=== PATIENT | male | born 1940 | race Caucasian/White ===

== ENCOUNTER 2020-10-25 20:28 | Inpatient (IN) ==
[2020-10-25] MEDS ORDERED: Isovue-370 500 ML BOTTLE IVP ONE (20:49)
[2020-10-25 21:12] LABS: Basophils % 0.1 %
[2020-10-25 21:14] LABS: Hematocrit 46.3 % (37.5-50.1); Hemoglobin 15.4 g/dL (12.9-16.9); Immature Granulocytes % 0.3 % (0-4); Immature Platelets 4.7 % (1.1-6.1); Lymphocytes # 0.6 K/mcL (0.6-4.6); Lymphocytes % 8.1 %; Mean Corpuscular HGB Conc 33.3 g/dL (31.6-35.5); Mean Corpuscular Hemoglobin 29.7 pg (28.0-33.3); Mean Corpuscular Volume 89.4 fL (83.0-100.0); Monocytes # 0.3 K/mcL (0.0-1.3); Monocytes % 4.9 %; Platelet Count 120 K/mcL (140-400); Red Blood Count 5.18 M/mcL (4.19-5.50); Segmented Neutrophils % 86.6 %; White Blood Count 6.9 K/mcL (4.3-11.1)
[2020-10-25] MEDS ORDERED: Piperacillin/Tazobactam 3.375 GM in Water for inj. (sterile) 20 ML IVP ONE (21:40)
[2020-10-25 21:42] LABS: Albumin 3.4 g/dL (3.5-5.7); Bilirubin,Total 0.6 mg/dL (0.3-1.0); Calcium 8.1 mg/dL (8.6-10.3); Globulin 3.3 g/dL (2.4-3.5); Potassium 4.5 mEq/L (3.5-5.1); Total Protein 6.7 g/dL (6.4-8.9); Troponin I 0.05 ng/mL (< 0.04)
[2020-10-25] MEDS ORDERED: Dexamethasone 4 MG/ML VIAL IVP ONE (22:20)
[2020-10-25] MEDS ORDERED: 0.9 % Sodium Chloride 500 ML IVC ONE (23:58)
[2020-10-26] MEDS ORDERED: Naloxone 0.4 MG/ML INJ IVP PRN
[2020-10-26] MEDS ORDERED: Acetaminophen 325 MG TABLET PO PRN
[2020-10-26] MEDS ORDERED: Ondansetron ODT 4 MG TAB.RAPDIS SL PRN
[2020-10-26] MEDS ORDERED: D5% in Water 1,000 ML IVC PRN (00:05)
[2020-10-26] MEDS ORDERED: *HR* Dextrose 50 % in Water (Vial) 50 ML VIAL IVP PRN (00:05)
[2020-10-26] MEDS ORDERED: Dextrose Gel 15 GM/37.5 ML TUBE PO PRN ×2 (00:05)
[2020-10-26] MEDS ORDERED: Insulin LISPRO 300 UNITS/3 ML VIAL SUBQ SCH ×2 (00:15)
[2020-10-26 02:36] LABS: Basophils % 0.2 %; Hematocrit 41.8 % (37.5-50.1); Immature Granulocytes % 0.3 % (0-4); Lymphocytes # 0.4 K/mcL (0.6-4.6); Lymphocytes % 6.8 %; Mean Corpuscular HGB Conc 32.5 g/dL (31.6-35.5); Mean Corpuscular Hemoglobin 28.8 pg (28.0-33.3); Mean Corpuscular Volume 88.6 fL (83.0-100.0); Mean Platelet Volume 10.5 fL (9.4-12.4); Monocytes # 0.2 K/mcL (0.0-1.3); Monocytes % 3.5 %; Neutrophils # 5.7 K/mcL (1.6-8.9); Platelet Count 110 K/mcL (140-400); Red Blood Count 4.72 M/mcL (4.19-5.50); Red Cell Distribution Width 14.9 % (11.5-14.5); Segmented Neutrophils % 89.2 %; White Blood Count 6.3 K/mcL (4.3-11.1)
[2020-10-26 02:40] LABS: Hemoglobin 13.6 g/dL (12.9-16.9)
[2020-10-26 02:47] LABS: BUN/Creatinine Ratio 38 (6-26); Blood Urea Nitrogen 39 mg/dL (8-23); C-Reactive Protein 118 mg/L (Less than 10); Calcium 7.6 mg/dL (8.6-10.3); Carbon Dioxide 14 mEq/L (23-29); Chloride 99 mEq/L (98-107); Chol/HDL Ratio 4.1 (0-4.9); Cholesterol 154 mg/dL (< 200); Glucose 260 mg/dL (70-105); HDL Cholesterol 38 mg/dL (40-59); LDL Cholesterol,Calculated 87 mg/dL (< 100); Lactate Dehydrogenase 390 Units/L (140-271); Magnesium 2.2 mg/dL (1.6-2.6); Osmolality,Calculated 280 (280-300); Phosphorous 3.4 mg/dL (2.7-4.5); Potassium 4.6 mEq/L (3.5-5.1); Sodium 126 mEq/L (136-145); Triglycerides 144 mg/dL (< 150); eGFR For African Americans > 60 (> 60); eGFR For Non-African Americans > 60 (> 60)
[2020-10-26 02:48] LABS: INR 1.3
[2020-10-26 03:00] LABS: Thyroid Stimulating Hormone 1.446 mcIU/mL (0.340-5.600)
[2020-10-26 03:05] LABS: Ferritin 837 ng/mL (20-250)
[2020-10-26 07:39] LABS: Bilirubin,Urine Negative (Negative); Blood,Urine Negative (Negative); Clarity,Urine Clear (Clear); Color,Urine Colorless (Yellow); Glucose,Urine (UA) >=1000 mg/dL (Normal); Ketones,Urine 20 mg/dL (Negative); Leukocyte Esterase,Urine Negative (Negative); Mucus,Urine Few per lpf (None-Few); Nitrite,Urine Negative (Negative); Protein,Urine Negative (Neg-Trace); Specific Gravity,Urine > 1.030 (1.010-1.025); Urobilinogen,Urine Normal (Normal); WBC,Urine 0-3 per hpf (0-3)
[2020-10-26] MEDS: Dexamethasone 4 MG/ML VIAL IVP SCH (08:01)
[2020-10-26] MEDS: Piperacillin/Tazobactam 3.375 GM in 0.9 % Sodium Chloride Mini Bag 100 ML IVPB SCH ×2 (08:01→20:41)
[2020-10-26] MEDS ORDERED: Furosemide 40 MG/4 ML VIAL IVP ONE (08:01)
[2020-10-26] MEDS: Insulin LISPRO 300 UNITS/3 ML VIAL SUBQ SCH ×3 (08:08→18:19)
[2020-10-26 09:31] LABS: Estimated Average Glucose 263 mg/dl; Hemoglobin A1C 10.8 %
[2020-10-26] MEDS: Ipratropium 1 PUFF INHALER IH SCH ×4 (11:42→23:19)
[2020-10-26 17:46] LABS: Adenovirus Not Detected (Not Detect); Bordetella Pertussis Not Detected (Not Detect); Chlamydophila pneumoniae Not Detected (Not Detect); Coronavirus 229E Not Detected (Not Detect); Coronavirus HKU1 Not Detected (Not Detect); Coronavirus NL63 Not Detected (Not Detect); Coronavirus OC43 Not Detected (Not Detect); Human Metapneumovirus Not Detected (Not Detect); Human Rhinovirus/Enterovirus Not Detected (Not Detect); Influenza A Subtype 2009 H1 Not Detected (Not Detect); Influenza B Not Detected (Not Detect); Mycoplasma pneumoniae Not Detected (Not Detect); Parainfluenza Virus 1 Not Detected (Not Detect); Parainfluenza Virus 2 Not Detected (Not Detect); Parainfluenza Virus 3 Not Detected (Not Detect); Parainfluenza Virus 4 Not Detected (Not Detect); Respiratory Syncytial Virus Not Detected (Not Detect)
[2020-10-26 17:47] LABS: SARS-CoV-2 DETECTED (Not Detect)
[2020-10-26] MEDS ORDERED: Remdesivir 200 MG in 0.9 % Sodium Chloride 100 ML IVPB ONE (18:00)
[2020-10-26] MEDS: *HR* Rivaroxaban 10 MG TABLET PO SCH (18:18)
[2020-10-26] MEDS: Doxycycline 100 MG in 0.9 % Sodium Chloride Mini Bag 100 ML IVPB SCH (20:42)
[2020-10-26] MEDS: Furosemide 40 MG/4 ML VIAL IVP SCH (20:43)
[2020-10-26] MEDS: Insulin DETEMIR 100 UNIT/ML X5UNITS SUBQ SCH (21:03)
[2020-10-26] MEDS ORDERED: Vancomycin 1,250 MG/262.5 ML IV.SOLN IVPB SCH (22:00)
[2020-10-27] MEDS: Piperacillin/Tazobactam 3.375 GM in 0.9 % Sodium Chloride Mini Bag 100 ML IVPB SCH ×4 (01:11→23:42)
[2020-10-27] MEDS: Ipratropium 1 PUFF INHALER IH SCH ×6 (03:53→23:43)
[2020-10-27] MEDS: Doxycycline 100 MG in 0.9 % Sodium Chloride Mini Bag 100 ML IVPB SCH (05:47)
[2020-10-27 06:12] LABS: Basophils % 0.1 %; Hematocrit 47.4 % (37.5-50.1); Immature Granulocytes % 0.3 % (0-4); Lymphocytes # 0.4 K/mcL (0.6-4.6); Lymphocytes % 5.5 %; Mean Corpuscular Volume 88.4 fL (83.0-100.0); Mean Platelet Volume 10.7 fL (9.4-12.4); Monocytes # 0.3 K/mcL (0.0-1.3); Monocytes % 4.3 %; Neutrophils # 6.3 K/mcL (1.6-8.9); Platelet Count 124 K/mcL (140-400); Red Blood Count 5.36 M/mcL (4.19-5.50); Red Cell Distribution Width 14.8 % (11.5-14.5); Segmented Neutrophils % 89.8 %
[2020-10-27 06:24] LABS: Hemoglobin 16.1 g/dL (12.9-16.9)
[2020-10-27 06:30] LABS: D-Dimer 2645 ng/mLFEU (0-500); Fibrinogen 716 mg/dL (169-393)
[2020-10-27 06:43] LABS: BUN/Creatinine Ratio 37 (6-26); Blood Urea Nitrogen 46 mg/dL (8-23); Calcium 7.9 mg/dL (8.6-10.3); Carbon Dioxide 15 mEq/L (23-29); Chloride 96 mEq/L (98-107); Glucose 270 mg/dL (70-105); Magnesium 2.2 mg/dL (1.6-2.6); Osmolality,Calculated 291 (280-300); Phosphorous 3.9 mg/dL (2.7-4.5); Potassium 3.9 mEq/L (3.5-5.1); Sodium 130 mEq/L (136-145); Troponin I 0.05 ng/mL (< 0.04); eGFR For African Americans > 60 (> 60); eGFR For Non-African Americans 55 (> 60)
[2020-10-27] MEDS: *HR* Rivaroxaban 10 MG TABLET PO SCH (09:13)
[2020-10-27] MEDS: Furosemide 40 MG/4 ML VIAL IVP SCH ×2 (09:13→21:04)
[2020-10-27] MEDS: Aspirin 81 MG TAB.CHEW PO SCH (09:13)
[2020-10-27] MEDS: Loratadine 10 MG TABLET PO SCH (09:13)
[2020-10-27] MEDS: Isosorbide MONOnitrate (24 HR) 30 MG TAB.ER.24H PO SCH (09:13)
[2020-10-27] MEDS: Dexamethasone 4 MG/ML VIAL IVP SCH (09:14)
[2020-10-27] MEDS: Insulin LISPRO 300 UNITS/3 ML VIAL SUBQ SCH ×4 (09:17→21:07)
[2020-10-27] MEDS: Insulin DETEMIR 100 UNIT/ML X5UNITS SUBQ SCH ×2 (09:19→21:05)
[2020-10-27] MEDS: Vancomycin 1,250 MG/262.5 ML IV.SOLN IVPB SCH (13:42)
[2020-10-27] MEDS: Remdesivir 100 MG in 0.9 % Sodium Chloride 100 ML IVPB SCH (17:31)
[2020-10-27] MEDS: Lactobacillus 1 EACH CAP.SPRINK PO SCH (21:05)
[2020-10-28] MEDS: Ipratropium 1 PUFF INHALER IH SCH ×5 (03:54→20:16)
[2020-10-28 06:21] LABS: Basophils % 0.4 %; Hematocrit 45.1 % (37.5-50.1); Hemoglobin 15.2 g/dL (12.9-16.9); Immature Granulocytes % 0.4 % (0-4); Lymphocytes # 0.5 K/mcL (0.6-4.6); Mean Corpuscular HGB Conc 33.7 g/dL (31.6-35.5); Mean Corpuscular Volume 85.9 fL (83.0-100.0); Mean Platelet Volume 10.8 fL (9.4-12.4); Monocytes # 0.4 K/mcL (0.0-1.3); Monocytes % 4.7 %; Neutrophils # 6.5 K/mcL (1.6-8.9); Platelet Count 133 K/mcL (140-400); Red Blood Count 5.25 M/mcL (4.19-5.50); Red Cell Distribution Width 14.7 % (11.5-14.5); Segmented Neutrophils % 87.5 %; White Blood Count 7.5 K/mcL (4.3-11.1)
[2020-10-28 06:41] LABS: Fibrinogen 672 mg/dL (169-393)
[2020-10-28 06:43] LABS: D-Dimer 5555 ng/mLFEU (0-500)
[2020-10-28 06:44] LABS: BUN/Creatinine Ratio 39 (6-26); Blood Urea Nitrogen 48 mg/dL (8-23); Carbon Dioxide 19 mEq/L (23-29); Chloride 100 mEq/L (98-107); Glucose 163 mg/dL (70-105); Magnesium 2.2 mg/dL (1.6-2.6); Osmolality,Calculated 292 (280-300); Potassium 3.3 mEq/L (3.5-5.1); Sodium 133 mEq/L (136-145); eGFR For African Americans > 60 (> 60); eGFR For Non-African Americans 57 (> 60)
[2020-10-28] MEDS: Insulin LISPRO 300 UNITS/3 ML VIAL SUBQ SCH ×4 (08:18→19:53)
[2020-10-28] MEDS: Piperacillin/Tazobactam 3.375 GM in 0.9 % Sodium Chloride Mini Bag 100 ML IVPB SCH ×2 (08:18→15:58)
[2020-10-28] MEDS: Furosemide 40 MG/4 ML VIAL IVP SCH (08:19)
[2020-10-28] MEDS: *HR* Rivaroxaban 10 MG TABLET PO SCH (08:19)
[2020-10-28] MEDS: Isosorbide MONOnitrate (24 HR) 30 MG TAB.ER.24H PO SCH (08:19)
[2020-10-28] MEDS: Lactobacillus 1 EACH CAP.SPRINK PO SCH ×2 (08:19→19:53)
[2020-10-28] MEDS: Aspirin 81 MG TAB.CHEW PO SCH (08:19)
[2020-10-28] MEDS: Dexamethasone Sodium Phos/PF 10 MG/ML VIAL IVP SCH (08:19)
[2020-10-28] MEDS: Loratadine 10 MG TABLET PO SCH (08:19)
[2020-10-28] MEDS: Insulin DETEMIR 100 UNIT/ML X5UNITS SUBQ SCH ×2 (08:20→19:53)
[2020-10-28] MEDS: Pantoprazole 40 MG VIAL IVP SCH (08:20)
[2020-10-28 13:50] LABS: Alanine Aminotransferase 31 Units/L (7-52); Albumin 3.1 g/dL (3.5-5.7); Alkaline Phosphatase 86 Units/L (34-104); Aspartate Amino Transferase 53 Units/L (13-39); Bilirubin,Direct 0.2 mg/dL (0.0-0.2); Bilirubin,Indirect 0.6 mg/dL (0.0-1.0); Bilirubin,Total 0.8 mg/dL (0.3-1.0); Total Protein 6.1 g/dL (6.4-8.9)
[2020-10-28] MEDS: Vancomycin 1,250 MG/262.5 ML IV.SOLN IVPB SCH (14:35)
[2020-10-28] MEDS: Remdesivir 100 MG in 0.9 % Sodium Chloride 100 ML IVPB SCH (18:42)
[2020-10-29] MEDS: Ipratropium 1 PUFF INHALER IH SCH ×7 (00:03→23:46)
[2020-10-29] MEDS: Piperacillin/Tazobactam 3.375 GM in 0.9 % Sodium Chloride Mini Bag 100 ML IVPB SCH ×3 (00:29→16:33)
[2020-10-29 03:42] LABS: Hemoglobin 15.1 g/dL (12.9-16.9); Immature Platelets 4.8 % (1.1-6.1); Mean Corpuscular HGB Conc 33.6 g/dL (31.6-35.5); Mean Corpuscular Hemoglobin 28.9 pg (28.0-33.3); Mean Platelet Volume 10.9 fL (9.4-12.4); Red Blood Count 5.23 M/mcL (4.19-5.50); Red Cell Distribution Width 14.6 % (11.5-14.5); White Blood Count 7.9 K/mcL (4.3-11.1)
[2020-10-29 03:49] LABS: INR 1.3
[2020-10-29 04:00] LABS: Alanine Aminotransferase 29 Units/L (7-52); Albumin 2.9 g/dL (3.5-5.7); Alkaline Phosphatase 116 Units/L (34-104); Aspartate Amino Transferase 45 Units/L (13-39); BUN/Creatinine Ratio 45 (6-26); Bilirubin,Total 0.9 mg/dL (0.3-1.0); Blood Urea Nitrogen 49 mg/dL (8-23); Calcium 7.9 mg/dL (8.6-10.3); Carbon Dioxide 18 mEq/L (23-29); Chloride 104 mEq/L (98-107); Globulin 2.8 g/dL (2.4-3.5); Glucose 119 mg/dL (70-105); Osmolality,Calculated 294 (280-300); Potassium 3.5 mEq/L (3.5-5.1); Sodium 135 mEq/L (136-145); Total Protein 5.7 g/dL (6.4-8.9); eGFR For African Americans > 60 (> 60); eGFR For Non-African Americans > 60 (> 60)
[2020-10-29] MEDS: Insulin LISPRO 300 UNITS/3 ML VIAL SUBQ SCH ×4 (08:41→20:18)
[2020-10-29] MEDS: Dexamethasone Sodium Phos/PF 10 MG/ML VIAL IVP SCH (08:48)
[2020-10-29] MEDS: Aspirin 81 MG TAB.CHEW PO SCH (08:48)
[2020-10-29] MEDS: *HR* Rivaroxaban 10 MG TABLET PO SCH (08:48)
[2020-10-29] MEDS: Loratadine 10 MG TABLET PO SCH (08:48)
[2020-10-29] MEDS: Lactobacillus 1 EACH CAP.SPRINK PO SCH ×2 (08:48→20:19)
[2020-10-29] MEDS: Pantoprazole 40 MG VIAL IVP SCH (08:49)
[2020-10-29] MEDS: Isosorbide MONOnitrate (24 HR) 30 MG TAB.ER.24H PO SCH (08:49)
[2020-10-29] MEDS: Insulin DETEMIR 100 UNIT/ML X5UNITS SUBQ SCH ×2 (08:49→20:18)
[2020-10-29] MEDS: Doxycycline 100 MG in 0.9 % Sodium Chloride Mini Bag 100 ML IVPB SCH ×2 (10:10→20:19)
[2020-10-29] MEDS: Remdesivir 100 MG in 0.9 % Sodium Chloride 100 ML IVPB SCH (17:17)
[2020-10-29] MEDS: Furosemide 40 MG/4 ML VIAL IVP SCH (20:20)
[2020-10-29] MEDS ORDERED: Melatonin 3 MG TABLET PO ONE (22:00)
[2020-10-30 02:27] LABS: Hematocrit 47.5 % (37.5-50.1); Hemoglobin 15.8 g/dL (12.9-16.9); Mean Corpuscular HGB Conc 33.3 g/dL (31.6-35.5); Mean Corpuscular Volume 87.2 fL (83.0-100.0); Mean Platelet Volume 11.6 fL (9.4-12.4); Platelet Count 129 K/mcL (140-400); Red Blood Count 5.45 M/mcL (4.19-5.50); Red Cell Distribution Width 14.9 % (11.5-14.5); White Blood Count 11.5 K/mcL (4.3-11.1)
[2020-10-30 02:33] LABS: INR 1.8; Prothrombin Time 20.9 Seconds (9.4-12.1)
[2020-10-30 02:54] LABS: Albumin 3.2 g/dL (3.5-5.7); Bilirubin,Total 1.1 mg/dL (0.3-1.0); Calcium 8.2 mg/dL (8.6-10.3); Globulin 3.1 g/dL (2.4-3.5); Potassium 3.8 mEq/L (3.5-5.1); Total Protein 6.3 g/dL (6.4-8.9)
[2020-10-30] MEDS: Ipratropium 1 PUFF INHALER IH SCH ×3 (03:42→11:32)
[2020-10-30] MEDS: Doxycycline 100 MG in 0.9 % Sodium Chloride Mini Bag 100 ML IVPB SCH (08:55)
[2020-10-30] MEDS: Pantoprazole 40 MG VIAL IVP SCH (08:56)
[2020-10-30] MEDS: Dexamethasone Sodium Phos/PF 10 MG/ML VIAL IVP SCH (08:56)
[2020-10-30] MEDS: Insulin LISPRO 300 UNITS/3 ML VIAL SUBQ SCH ×2 (08:57→12:28)
[2020-10-30] MEDS: Isosorbide MONOnitrate (24 HR) 30 MG TAB.ER.24H PO SCH (08:57)
[2020-10-30] MEDS: *HR* Rivaroxaban 10 MG TABLET PO SCH (08:57)
[2020-10-30] MEDS: Lactobacillus 1 EACH CAP.SPRINK PO SCH (08:57)
[2020-10-30] MEDS: Aspirin 81 MG TAB.CHEW PO SCH (08:57)
[2020-10-30] MEDS: Loratadine 10 MG TABLET PO SCH (08:57)
[2020-10-30] MEDS: Insulin DETEMIR 100 UNIT/ML X5UNITS SUBQ SCH (08:59)
[2020-10-30] MEDS ORDERED: Metoprolol XL (24 HR) Succ 25 MG TAB.ER.24H PO SCH (09:00)
[2020-10-30] MEDS: Furosemide 40 MG/4 ML VIAL IVP SCH (09:45)
[2020-10-30] MEDS ORDERED: Benzonatate 100 MG CAPSULE PO PRN (12:44)
[2020-10-30] MEDS ORDERED: 0.9 % Sodium Chloride 1,000 ML IVC SCH (12:45)
[2020-10-30] MEDS ORDERED: *HR* LORazepam 2 MG/ML VIAL IVP PRN ×2 (13:43→15:27)
[2020-10-30] MEDS ORDERED: Ringers Solution, Lactated 1,000 ML ONE (14:07)
[2020-10-30 14:15] LABS: ABG Base Excess -10 mEq/L (-2 to 3); ABG HCO3 18 mEq/L (21-27); ABG Oxygen Saturation 91 % (95-98); ABG PCO2 50 mmHg (35-45); ABG PH 7.16 pH Units (7.32-7.45); ABG PO2 79 mmHg (85-104); ABG TCO2 20 mEq/L (20-26); Blood Gas Modality ASSIST CONTROL; Blood Gas VT 480 cc
[2020-10-30] MEDS ORDERED: FentaNYL (PF) 1,000 MCG/100 ML IV.SOLN IVC SCH (14:30)
[2020-10-30] MEDS ORDERED: Norepinephrine 4 MG/254 ML IV.SOLN IVC SCH (15:15)
[2020-10-30 16:30] VITALS: BP 59/44
== END 2020-10-30 16:15 | disposition expired | DRG 871 ==
LOC: 2NENU 20:28 → EMEROOARM 20:28 → SUATTDRO 10-26 00:21 → 2NENU 10-26 00:43 → ICNU 10-30 14:41
PROVIDERS: ADMIT Internal Medicine; ATTEND Pharmacist